=== PATIENT | female | born 1985 | race Caucasian/White ===

== ENCOUNTER 2018-11-20 12:29 | Emergency (ER) | payer MEDICAID ==
[~2018-11-20] VITALS: Ht 172.7 cm; Wt 63.5 kg
[~2018-11-20 12:29] MED LIST: Antivert25 MG PO; BCP'S; CRUTCH2 USE; DOCU100 PO; ESCI5 PO; Flonase 0.05% N16 GM; HYDACE5 PO; IBUP800 PO; NUVA RING VAG; OXYACE5T PO; PRED10 PO; PROACE100; PSEU120ER PO; Prednisone20 MG PO; Zithromax250 MG PO; Zofran Odt4 MG SL
[2018-11-20 13:29] LABS: BASOPHILS ABSOLUTE AUTO 0.03 K/mm3 (0.00-0.23); BASOPHILS PERCENT AUTO 1 % (0-2); EOSINOPHILS ABSOLUTE AUTO 0.02 K/mm3 (0.00-0.68); EOSINOPHILS PERCENT AUTO 0 % (0-6); Hematocrit 47.8 % (33.0-51.0); Hemoglobin 15.9 g/dL (11.5-16.0); IMMATURE GRAN ABSOLUTE AUTO 0.03 K/mm3 (0.00-0.10); IMMATURE GRAN PERCENT AUTO 1 % (0-1); LYMPHOCYTES ABSOLUTE AUTO 0.75 K/mm3 (0.84-5.20); LYMPHOCYTES PERCENT AUTO 12 % (21-46); MONOCYTES ABSOLUTE AUTO 0.74 K/mm3 (0.16-1.47); MONOCYTES PERCENT AUTO 12 % (4-13); Mean Corpuscular HGB 31.5 pg (26.0-34.0); Mean Corpuscular HGB Conc 33.3 g/dL (31.5-36.5); Mean Corpuscular Volume 95 fL (80-100); Mean Platelet Volume 9.8 fL (9.1-12.4); NEUTROPHILS ABSOLUTE AUTO 4.83 K/mm3 (1.96-9.15); NEUTROPHILS PERCENT AUTO 75 % (41-73); Platelet Count 190 K/mm3 (150-400); RDW Coefficient Variation 11.9 % (11.7-14.2); RDW Standard Deviation 41.1 fL (35.1-46.3); Red Blood Cell Count 5.05 M/mm3 (3.80-5.20)
[2018-11-20 13:41] LABS: Alanine Aminotransfer (ALT/SGP 16 U/L (12-78); Albumin, Blood 4.2 g/dL (3.4-5.0); Albumin/Globulin Ratio 1.2 (0.8-1.8); Alk Phos 70 U/L (50-136); Anion Gap 6 mmol/L (6-16); Aspartate Aminotrans (AST/SGOT 11 U/L (12-37); Bilirubin, Total 0.3 mg/dL (0.1-1.0); Blood Urea Nitrogen 6 mg/dL (8-24); Bun/Creatinine Ratio 6.9 (12.0-20.0); CO2, Blood 26 mmol/L (21-32); Calcium, Blood 8.8 mg/dL (8.5-10.1); Chloride, Blood 105 mmol/L (98-108); Creatinine, Blood 0.87 mg/dL (0.40-1.00); Globulin, Blood 3.6 g/dL (2.2-4.0); Glomerular Filtration Rate >60 (60-); Glucose, Blood 90 mg/dL (70-99); Potassium, Blood 4.1 mmol/L (3.5-5.5); Sodium, Blood 137 mmol/L (136-145); Total Protein, Blood 7.8 g/dL (6.4-8.2)
[2018-11-20 14:07] LABS: Source, Urine Clean Catch
[2018-11-20 14:13] LABS: Appearance, Urine Clear (Clear); Bilirubin, Urine Neg (Neg); Blood, Urine 5+ (Neg); Color, Urine Yellow (P-Yellow); Glucose Qualitative, Urine Neg (Neg); Ketones, Urine 1+ (Neg); Leukocyte Esterase, Urine 1+ (Neg); Nitrite, Urine Neg (Neg); Protein, Urine 2+ (Neg); Specific Gravity, Urine 1.025 (1.003-1.022); Urobilinogen, Urine NORM (Normal)
[2018-11-20 14:21] LABS: White Blood Cells, Urine 0-2 /hpf (0-5)
[2018-11-20 14:22] LABS: Bacteria Few /hpf; Mucus Mod (0-Heavy); Squamous Epithelial Cells Mod /hpf (Few)
[2018-11-20 15:35] LABS: Influenza A Positive (NEGATIVE); Influenza B Negative (NEGATIVE)
[2018-11-20] MEDS ORDERED: Norco 5-325 Ta1 EACH PO (15:44)
[2018-11-20] MEDS ORDERED: Zofran4 MG PO (15:44)
[2018-11-20] MEDS ORDERED: Naprosyn500 MG PO (15:44)
== END 2018-11-20 16:00 | disposition home or self-care (01) ==
LOC: ER 12:29
PROVIDERS: Emergency Medicine; Internal Medicine
DX: J10.1 Influenza due to other identified influenza virus with other respiratory manifestations (principal); F17.200 Nicotine dependence, unspecified, uncomplicated
CPT/HCPCS: 36415; 71046; 80053; 81001; 83690; 85025; 87086; 87804; 96374; 96375; 99283-25; J1885; J3010

== ENCOUNTER → 2021-11-09 | Outpatient (CLI) | payer SELFPAY ==
[~2021-11-09] MED LIST changes: +Naprosyn500 MG PO; +Norco 5-325 Ta1 EACH PO; +Zofran4 MG PO
[2021-11-12 07:10] LABS: CHLAMYDIA BY NAA Negative (Negative); GONOCOCCUS BY NAA Negative (Negative); TRICH VAG BY NAA Negative (Negative)
[2021-11-12 13:10] LABS: HPV 16 Negative (Negative); HPV 18 Negative (Negative); HPV OTHER HR TYPES Negative (Negative)
== END ==
LOC: LAB SHORT 18:07
PROVIDERS: Registered Nurse Community Health
DX: Z12.4 Encounter for screening for malignant neoplasm of cervix (principal)
CPT/HCPCS: 87491; 87591; 87624; 87661; G0123

== ENCOUNTER 2024-08-27 11:55 | Emergency (ER) | payer OTHER ==
[~2024-08-27] VITALS: Ht 172.7 cm; Wt 77.1 kg
[2024-08-27 12:14] VITALS: BP 129/90
== END 2024-08-27 12:36 | disposition home or self-care (01) ==
LOC: ER 11:55
DX: N63.20 Unspecified lump in the left breast, unspecified quadrant (principal); N64.4 Mastodynia; F17.200 Nicotine dependence, unspecified, uncomplicated
CPT/HCPCS: 99283